=== PATIENT | male | born 1995 | race Caucasian/White ===

== ENCOUNTER 2023-10-27 15:37 | Inpatient (IN) | payer OTHER ==
[2023-10-27 16:38] VITALS: BMI 40.7
[2023-10-27] MEDS ORDERED: BENZOCAINE/MENTHOL (CHLORASEPTIC ) LOZENGE MM PRN (18:14)
[2023-10-27] MEDS ORDERED: DICYCLOMINE HCL 10 MG CAPSULE PO PRN (18:14)
[2023-10-27] MEDS ORDERED: LOPERAMIDE HCL 2 MG CAPSULE PO PRN (18:14)
[2023-10-27] MEDS ORDERED: BUPRENORPHINE HCL 150 MCG, BUPRENORPHINE HCL 75 MCG BC ONE ×2 (18:14→19:00)
[2023-10-27] MEDS ORDERED: NALOXONE HCL 0.4 MG/ML VIAL IM PRN (18:14)
[2023-10-27] MEDS ORDERED: IBUPROFEN 600 MG TABLET (FP) PO PRN (18:14)
[2023-10-27] MEDS ORDERED: guaiFENesin 600 MG TABLET.ER (FP) PO PRN (18:14)
[2023-10-27] MEDS ORDERED: NALOXONE HCL (KLOXXADO) 8 MG SPRAY NS PRN (18:14)
[2023-10-27] MEDS ORDERED: ONDANSETRON *ODT* 4 MG TABLET SL PRN (18:14)
[2023-10-27] MEDS ORDERED: MAG HYDROX/AL HYDROX/SIMETH 30 ML UNIT-DOSE CUP PO PRN (18:14)
[2023-10-27] MEDS ORDERED: POLYETHYLENE GLYCOL (HEALTHYLAX) 3350 17 GM PACKET PO PRN (18:14)
[2023-10-27] MEDS ORDERED: MAGNESIUM HYDROX 2400MG/30ML ORAL SUSPENSION 30 ML CUP PO PRN (18:14)
[2023-10-27] MEDS ORDERED: BISMUTH SUBSALICYLATE 524 MG/30 ML PO PRN (18:14)
[2023-10-27] MEDS ORDERED: cloNIDine HCL 0.1 MG TABLET PO ONE (18:14)
[2023-10-27] MEDS ORDERED: ACETAMINOPHEN 325 MG TABLET (FP) PO PRN (18:14)
[2023-10-27] MEDS ORDERED: BENZONATATE 200 MG CAPSULE PO PRN (18:14)
[2023-10-27] MEDS ORDERED: IBUPROFEN 400 MG TABLET (FP) PO PRN (18:14)
[2023-10-27] MEDS ORDERED: BUPRENORPHINE HCL 150 MCG, BUPRENORPHINE HCL 75 MCG BC PRN (18:53)
[2023-10-27] MEDS ORDERED: cloNIDine HCL 0.1 MG TABLET ONE (19:07)
[2023-10-27] MEDS: diazePAM 5 MG TABLET PO PRN (22:15)
[2023-10-27] MEDS: THIAMINE HCL 100 MG TABLET (FP) PO SCH (22:16)
[2023-10-27] MEDS: MELATONIN 5 MG TABLETS PO SCH (22:16)
[2023-10-28] MEDS ORDERED: BUPRENORPHINE HCL 150 MCG, BUPRENORPHINE HCL 75 MCG BC PRN
[2023-10-28] MEDS: BUPRENORPHINE HCL 150 MCG, BUPRENORPHINE HCL 75 MCG BC SCH ×2 (06:22→19:01)
[2023-10-28] MEDS: PRENATAL VITAMINS W/ FOLIC ACID TABLET (FP) PO SCH (10:23)
[2023-10-28 10:25] LABS: HEMATOCRIT 44.6 % (35.4-49); HEMOGLOBIN 15.2 GM/dL (11.7-16.9); MCH 29.3 pg (25.7-33.7); MEAN PLT VOLUME 7.7 fl (7.5-11.1); PLATELET COUNT 370 10^3/uL (134-434); RBC 5.19 M/mm3 (4.00-5.60); RDW 12.9 % (11.9-15.9); WHITE BLOOD COUNT 6.7 K/mm3 (4.0-10.0)
[2023-10-28] MEDS: hydrOXYzine PAMOATE 25 MG CAPSULE (FP) PO PRN ×2 (10:27→22:14)
[2023-10-28] MEDS: diazePAM 5 MG TABLET PO PRN ×2 (10:27→21:22)
[2023-10-28] MEDS: METHOCARBAMOL 500 MG TABLET PO PRN (10:27)
[2023-10-28 10:28] LABS: POTASSIUM 4.2 mmol/L (3.5-5.1)
[2023-10-28 10:37] LABS: ALBUMIN 3.6 g/dl (3.4-5.0)
[2023-10-28 10:39] LABS: CREATININE 0.8 mg/dL (0.55-1.3)
[2023-10-28 10:40] LABS: BLOOD UREA NITROGEN 12.1 mg/dL (7-18); CALCIUM 8.9 mg/dL (8.5-10.1)
[2023-10-28 10:41] LABS: BILIRUBIN,TOTAL 0.4 mg/dL (0.2-1); TOT PROT 6.7 g/dl (6.4-8.2)
[2023-10-28] MEDS: THIAMINE HCL 100 MG TABLET (FP) PO SCH (21:24)
[2023-10-28] MEDS: MELATONIN 5 MG TABLETS PO SCH (22:11)
[2023-10-28] MEDS: cloNIDine HCL 0.1 MG TABLET PO PRN (22:12)
[2023-10-29] MEDS ORDERED: BUPRENORPHINE/NALOXONE 2 MG/0.5 MG FILM PACKET SL ONE (06:00)
[2023-10-29] MEDS: BUPRENORPHINE HCL 450 MCG FILM BC SCH ×2 (06:19→17:36)
[2023-10-29] MEDS: PRENATAL VITAMINS W/ FOLIC ACID TABLET (FP) PO SCH (10:28)
[2023-10-29] MEDS: diazePAM 5 MG TABLET PO PRN ×2 (13:19→19:25)
[2023-10-29] MEDS: hydrOXYzine PAMOATE 25 MG CAPSULE (FP) PO PRN ×2 (15:21→22:27)
[2023-10-29] MEDS: METHOCARBAMOL 500 MG TABLET PO PRN (15:21)
[2023-10-29] MEDS: cloNIDine HCL 0.1 MG TABLET PO PRN (17:36)
[2023-10-29] MEDS: THIAMINE HCL 100 MG TABLET (FP) PO SCH (22:27)
[2023-10-29] MEDS: MELATONIN 5 MG TABLETS PO SCH (22:27)
[2023-10-30 05:49] VITALS: RESP 18
[2023-10-30] MEDS: BUPRENORPHINE/NALOXONE 4 MG/1 MG FILM PACKET SL SCH ×2 (06:23→17:27)
[2023-10-30] MEDS: diazePAM 5 MG TABLET PO PRN ×3 (07:02→22:12)
[2023-10-30] MEDS: hydrOXYzine PAMOATE 25 MG CAPSULE (FP) PO PRN ×2 (07:03→19:13)
[2023-10-30] MEDS: METHOCARBAMOL 500 MG TABLET PO PRN ×2 (07:04→22:16)
[2023-10-30] MEDS: cloNIDine HCL 0.1 MG TABLET PO PRN ×2 (09:45→22:12)
[2023-10-30] MEDS: PRENATAL VITAMINS W/ FOLIC ACID TABLET (FP) PO SCH (09:45)
[2023-10-30] MEDS: MELATONIN 5 MG TABLETS PO SCH (22:12)
[2023-10-30] MEDS: THIAMINE HCL 100 MG TABLET (FP) PO SCH (22:12)
[2023-10-31] MEDS ORDERED: BUPRENORPHINE/NALOXONE 2 MG/0.5 MG FILM PACKET SL ONE (06:00)
[2023-10-31] MEDS ORDERED: BUPRENORPHINE/NALOXONE 8 MG/2 MG FILM PACKET SL ONE (06:00)
[2023-10-31 06:01] VITALS: BP 106/69; PULSE 82; TEMP 97.7
[2023-10-31] MEDS: PRENATAL VITAMINS W/ FOLIC ACID TABLET (FP) PO SCH (10:00)
[2023-11-01] MEDS ORDERED: BUPRENORPHINE/NALOXONE 8 MG/2 MG FILM PACKET SL ONE (06:00)
== END 2023-10-31 09:00 | disposition home or self-care (01) | DRG 773 ==
LOC: YASAS 15:37 → Y6N 19:08
PROVIDERS: ADMIT Allergy & Immunology; ATTEND Surgery
PROC: HZ2ZZZZ Detoxification Services for Substance Abuse Treatment (ICD-10-PCS; principal; 2023-10-27)
DX: F11.23 Opioid dependence with withdrawal (principal); F13.20 Sedative, hypnotic or anxiolytic dependence, uncomplicated; F31.9 Bipolar disorder, unspecified; F41.9 Anxiety disorder, unspecified; F32.A Depression, unspecified; I10 Essential (primary) hypertension; Z28.310 Unvaccinated for COVID-19; Z28.9 Immunization not carried out for unspecified reason
CPT/HCPCS: 36415; 80053; 85027; 86780; 87635; 93005; 93010

== ENCOUNTER 2024-02-03 15:22 | Inpatient (IN) | payer OTHER ==
[2024-02-03] MEDS ORDERED: NALOXONE HCL (KLOXXADO) 8 MG SPRAY NS PRN (17:22)
[2024-02-03] MEDS ORDERED: ONDANSETRON *ODT* 4 MG TABLET SL PRN (17:22)
[2024-02-03] MEDS ORDERED: NALOXONE HCL 0.4 MG/ML VIAL IM PRN (17:22)
[2024-02-03] MEDS ORDERED: P-EPHED 60MG/TRIPROLIDI 2.5MG TABLET PO PRN (17:22)
[2024-02-03] MEDS ORDERED: BENZONATATE 200 MG CAPSULE PO PRN (17:22)
[2024-02-03] MEDS ORDERED: LOPERAMIDE HCL 2 MG CAPSULE PO PRN (17:22)
[2024-02-03] MEDS ORDERED: BENZOCAINE/MENTHOL (CHLORASEPTIC ) LOZENGE MM PRN (17:22)
[2024-02-03] MEDS ORDERED: IBUPROFEN 600 MG TABLET (FP) PO PRN (17:22)
[2024-02-03] MEDS ORDERED: DICYCLOMINE HCL 10 MG CAPSULE PO PRN (17:22)
[2024-02-03] MEDS ORDERED: ACETAMINOPHEN 325 MG TABLET (FP) PO PRN (17:22)
[2024-02-03] MEDS ORDERED: IBUPROFEN 400 MG TABLET (FP) PO PRN (17:22)
[2024-02-03] MEDS ORDERED: guaiFENesin 600 MG TABLET.ER (FP) PO PRN (17:22)
[2024-02-03] MEDS ORDERED: BISMUTH SUBSALICYLATE 524 MG/30 ML PO PRN (17:22)
[2024-02-03 17:29] VITALS: BMI 42.0
[2024-02-03] MEDS: hydrOXYzine PAMOATE 25 MG CAPSULE (FP) PO PRN (17:51)
[2024-02-03] MEDS: MAG HYDROX/AL HYDROX/SIMETH 30 ML UNIT-DOSE CUP PO PRN (20:51)
[2024-02-03] MEDS ORDERED: MELATONIN 5 MG TABLETS PO SCH (22:00)
[2024-02-03] MEDS: THIAMINE HCL 100 MG TABLET (FP) PO SCH (22:11)
[2024-02-03] MEDS: hydrOXYzine PAMOATE 50 MG CAPSULE (FP) PO ONE (22:12)
[2024-02-03] MEDS: MELATONIN 5 MG TABLETS PO SCH (22:12)
[2024-02-04] MEDS ORDERED: chlordiazePOXIDE HCL 25 MG CAPSULE PO PRN (09:54)
[2024-02-04] MEDS: PRENATAL VITAMINS W/ FOLIC ACID TABLET (FP) PO SCH (10:27)
[2024-02-04] MEDS: hydrOXYzine PAMOATE 25 MG CAPSULE (FP) PO PRN (10:28)
[2024-02-04] MEDS: METHOCARBAMOL 500 MG TABLET PO PRN (10:28)
[2024-02-04] MEDS: chlordiazePOXIDE HCL 25 MG CAPSULE PO SCH (10:28)
[2024-02-04] MEDS: MAGNESIUM HYDROX 2400MG/30ML ORAL SUSPENSION 30 ML CUP PO PRN (12:00)
[2024-02-04 12:51] LABS: POTASSIUM 3.9 mmol/L (3.5-5.1)
[2024-02-04 12:52] LABS: HEMATOCRIT 43.3 % (35.4-49); HEMOGLOBIN 15.2 GM/dL (11.7-16.9); MCH 30.4 pg (25.7-33.7); MEAN CELL VOLUME 86.7 fl (80-96); MEAN PLT VOLUME 8.4 fl (7.5-11.1); PLATELET COUNT 295 10^3/uL (134-434); RDW 13.9 % (11.9-15.9); WHITE BLOOD COUNT 7.3 K/mm3 (4.0-10.0)
[2024-02-04 13:00] LABS: ALBUMIN 3.6 g/dl (3.4-5.0); BLOOD UREA NITROGEN 12.8 mg/dL (7-18); CALCIUM 8.8 mg/dL (8.5-10.1)
[2024-02-04 13:02] LABS: CREATININE 0.7 mg/dL (0.55-1.3)
[2024-02-04 13:04] LABS: TOT PROT 6.5 g/dl (6.4-8.2)
[2024-02-04 13:11] LABS: BILIRUBIN,TOTAL 0.3 mg/dL (0.2-1)
[2024-02-04] MEDS ORDERED: SUVOREXANT 10 MG TABLET PO PRN (22:00)
[2024-02-04] MEDS: SUVOREXANT 10 MG TABLET PO PRN (22:32)
[2024-02-05] MEDS ORDERED: chlordiazePOXIDE HCL 25 MG CAPSULE PO SCH (05:00)
[2024-02-05] MEDS: POLYETHYLENE GLYCOL (HEALTHYLAX) 3350 17 GM PACKET PO PRN (11:32)
[2024-02-05] MEDS: diazePAM 5 MG TABLET PO PRN (18:19)
[2024-02-05] MEDS: SUVOREXANT 15 MG TABLET PO PRN (22:38)
[2024-02-06] MEDS ORDERED: chlordiazePOXIDE HCL 10 MG CAPSULE PO SCH (05:00)
[2024-02-06] MEDS: BISACODYL 10 MG SUPP.RECT PR ONE (13:36)
[2024-02-06] MEDS: PSYLLIUM 5.85 GM PACKET PO SCH (13:36)
[2024-02-07] MEDS ORDERED: chlordiazePOXIDE HCL 10 MG CAPSULE PO PRN
[2024-02-07] MEDS ORDERED: chlordiazePOXIDE HCL 10 MG CAPSULE PO SCH (05:00)
[2024-02-07 12:49] VITALS: BP 145/97; PULSE 87; RESP 20; TEMP 96.4
[2024-02-08] MEDS ORDERED: chlordiazePOXIDE HCL 10 MG CAPSULE PO ONE (05:00)
== END 2024-02-07 14:55 | disposition home or self-care (01) | DRG 773 ==
LOC: YASAS 15:22 → Y6N 17:25
PROVIDERS: ADMIT Allergy & Immunology; ATTEND Surgery
PROC: HZ2ZZZZ Detoxification Services for Substance Abuse Treatment (ICD-10-PCS; principal; 2024-02-03)
DX: F11.23 Opioid dependence with withdrawal (principal); F13.20 Sedative, hypnotic or anxiolytic dependence, uncomplicated; F31.9 Bipolar disorder, unspecified; F41.9 Anxiety disorder, unspecified; I10 Essential (primary) hypertension; Z28.310 Unvaccinated for COVID-19; Z28.9 Immunization not carried out for unspecified reason; Z88.8 Allergy status to other drugs, medicaments and biological substances
CPT/HCPCS: 36415; 80053; 80305; 85027; 86780; 87635; 87811

== ENCOUNTER 2024-03-18 20:37 | Inpatient (IN) | payer OTHER ==
[2024-03-18 21:15] VITALS: BMI 41.1
[2024-03-18] MEDS ORDERED: BENZOCAINE/MENTHOL (CHLORASEPTIC ) LOZENGE MM PRN (21:57)
[2024-03-18] MEDS ORDERED: MAG HYDROX/AL HYDROX/SIMETH 30 ML UNIT-DOSE CUP PO PRN (21:57)
[2024-03-18] MEDS ORDERED: ACETAMINOPHEN 325 MG TABLET (FP) PO PRN (21:57)
[2024-03-18] MEDS ORDERED: ONDANSETRON *ODT* 4 MG TABLET SL PRN (21:57)
[2024-03-18] MEDS ORDERED: guaiFENesin 600 MG TABLET.ER (FP) PO PRN (21:57)
[2024-03-18] MEDS ORDERED: MAGNESIUM HYDROX 2400MG/30ML ORAL SUSPENSION 30 ML CUP PO PRN (21:57)
[2024-03-18] MEDS ORDERED: NICOTINE POLACRILEX 4 MG GUM BUC PRN (21:57)
[2024-03-18] MEDS ORDERED: NALOXONE HCL 0.4 MG/ML VIAL IM PRN (21:57)
[2024-03-18] MEDS ORDERED: LOPERAMIDE HCL 2 MG CAPSULE PO PRN (21:57)
[2024-03-18] MEDS ORDERED: POLYETHYLENE GLYCOL (HEALTHYLAX) 3350 17 GM PACKET PO PRN (21:57)
[2024-03-18] MEDS ORDERED: DICYCLOMINE HCL 10 MG CAPSULE PO PRN (21:57)
[2024-03-18] MEDS ORDERED: NALOXONE HCL (KLOXXADO) 8 MG SPRAY NS PRN (21:57)
[2024-03-18] MEDS ORDERED: BISMUTH SUBSALICYLATE 524 MG/30 ML PO PRN (21:57)
[2024-03-18] MEDS ORDERED: BENZONATATE 200 MG CAPSULE PO PRN (21:57)
[2024-03-18] MEDS ORDERED: cloNIDine HCL 0.1 MG TABLET ONE (22:24)
[2024-03-18] MEDS ORDERED: diazePAM 5 MG TABLET ONE (22:24)
[2024-03-18] MEDS ORDERED: MELATONIN 5 MG TABLETS ONE (22:24)
[2024-03-18] MEDS ORDERED: IBUPROFEN 400 MG TABLET (FP) PO ONE (22:25)
[2024-03-18] MEDS: THIAMINE 100 MG TABLET PO SCH (22:31)
[2024-03-18] MEDS: cloNIDine HCL 0.1 MG TABLET PO ONE (22:31)
[2024-03-18] MEDS: MELATONIN 5 MG TABLETS PO SCH (22:31)
[2024-03-18] MEDS: diazePAM 5 MG TABLET PO PRN (22:32)
[2024-03-18] MEDS: IBUPROFEN 400 MG TABLET (FP) PO PRN (22:33)
[2024-03-18] MEDS: BUPRENORPHINE HCL 150 MCG, BUPRENORPHINE HCL 75 MCG BC PRN (23:02)
[2024-03-18] MEDS: BUPRENORPHINE HCL 150 MCG, BUPRENORPHINE HCL 75 MCG BC ONE (23:35)
[2024-03-19] MEDS ORDERED: BUPRENORPHINE HCL 150 MCG, BUPRENORPHINE HCL 75 MCG BC PRN
[2024-03-19] MEDS: BUPRENORPHINE HCL 150 MCG, BUPRENORPHINE HCL 75 MCG BC SCH (06:02)
[2024-03-19] MEDS: PRENATAL VITAMINS W/ FOLIC ACID TABLET (FP) PO SCH (09:25)
[2024-03-19] MEDS: NICOTINE 14 MG/24 HOURS TOPICAL PATCH TD SCH (09:25)
[2024-03-19] MEDS: METHOCARBAMOL 500 MG TABLET PO PRN (09:27)
[2024-03-19] MEDS: hydrOXYzine PAMOATE 25 MG CAPSULE (FP) PO PRN (10:12)
[2024-03-19 13:03] LABS: HEMATOCRIT 45.8 % (35.4-49); HEMOGLOBIN 15.7 GM/dL (11.7-16.9); MCHC 34.3 g/dl (32.0-35.9); MEAN CELL VOLUME 87.5 fl (80-96); MEAN PLT VOLUME 8.2 fl (7.5-11.1); PLATELET COUNT 284 10^3/uL (134-434); RBC 5.24 M/mm3 (4.00-5.60); RDW 13.6 % (11.9-15.9)
[2024-03-19 13:05] LABS: CHLORIDE 107 mmol/L (98-107); SODIUM 136 mmol/L (136-145)
[2024-03-19 13:12] LABS: ALBUMIN 3.7 g/dl (3.4-5.0); ANION GAP 3 mmol/L (4-13); CALCIUM 9.6 mg/dL (8.5-10.1); CO2 26 mmol/L (21-32); GLUCOSE,RANDOM 105 mg/dL (74-106)
[2024-03-19 13:15] LABS: SGPT/ALT 73 U/L (13-61)
[2024-03-19 13:16] LABS: CREATININE 0.9 mg/dL (0.55-1.3); SGOT/AST 41 U/L (15-37)
[2024-03-19 13:17] LABS: BILIRUBIN,TOTAL 0.6 mg/dL (0.2-1); TOT PROT 6.8 g/dl (6.4-8.2)
[2024-03-19 13:18] LABS: ALK PHOS 91 U/L (45-117)
[2024-03-19] MEDS: IBUPROFEN 600 MG TABLET (FP) PO PRN (18:08)
[2024-03-19] MEDS: diazePAM 5 MG TABLET PO PRN (22:23)
[2024-03-20] MEDS: BUPRENORPHINE HCL 450 MCG FILM BC SCH (06:08)
[2024-03-20] MEDS: ESCITALOPRAM OXALATE 10 MG TABLET PO SCH (11:27)
[2024-03-20] MEDS: GABAPENTIN 300 MG CAPSULE PO SCH ×2 (11:28→22:23)
[2024-03-20] MEDS: SUVOREXANT 10 MG TABLET PO PRN (22:24)
[2024-03-21] MEDS: BUPRENORPHINE/NALOXONE 4 MG/1 MG FILM PACKET SL SCH (05:18)
[2024-03-21 08:49] VITALS: RESP 18
[2024-03-21] MEDS: LACTULOSE 20 GM/30 ML UDC (FOR ORAL USE ONLY) PO ONE ×2 (09:38→18:17)
[2024-03-21] MEDS: cloNIDine HCL 0.1 MG TABLET PO PRN (14:04)
[2024-03-22] MEDS: BUPRENORPHINE/NALOXONE 8 MG/2 MG FILM PACKET SL ONE (06:28)
[2024-03-22] MEDS ORDERED: diphenhydrAMINE HCL 25 MG CAPSULE (FP) PO PRN (09:13)
[2024-03-22] MEDS: diphenhydrAMINE HCL 50 MG CAPSULE PO ONE (09:46)
[2024-03-22] MEDS: CALAMINE 8% TOPICAL LOTION 177 ML BOTTLE TP PRN (10:28)
[2024-03-22] MEDS: predniSONE 20 MG TABLET (UD) PO SCH (10:28)
[2024-03-22] MEDS: PRAMOXINE HCL/CALAMINE 177 ML LOTION TP SCH (11:15)
[2024-03-22 11:30] VITALS: BP 130/74; PULSE 81; TEMP 97.8
[2024-03-22] MEDS ORDERED: BUPRENORPHINE/NALOXONE 8 MG/2 MG FILM PACKET SL SCH (14:00)
== END 2024-03-22 12:05 | disposition other institution (70) | DRG 773 ==
LOC: YASAS 20:37 → Y6N 22:06
PROVIDERS: ADMIT Allergy & Immunology; ATTEND Surgery
PROC: HZ2ZZZZ Detoxification Services for Substance Abuse Treatment (ICD-10-PCS; principal; 2024-03-18)
DX: F11.23 Opioid dependence with withdrawal (principal); F14.20 Cocaine dependence, uncomplicated; F13.20 Sedative, hypnotic or anxiolytic dependence, uncomplicated; F12.20 Cannabis dependence, uncomplicated; F17.210 Nicotine dependence, cigarettes, uncomplicated; F31.9 Bipolar disorder, unspecified; F19.280 Other psychoactive substance dependence with psychoactive substance-induced anxiety disorder; F19.282 Other psychoactive substance dependence with psychoactive substance-induced sleep disorder; F90.9 Attention-deficit hyperactivity disorder, unspecified type; L25.9 Unspecified contact dermatitis, unspecified cause; K59.00 Constipation, unspecified; Z28.310 Unvaccinated for COVID-19; Z28.9 Immunization not carried out for unspecified reason
CPT/HCPCS: 36415; 80053; 80305; 80307; 85027; 86780

== ENCOUNTER 2024-04-13 15:42 | Inpatient (IN) | payer OTHER ==
[2024-04-13 16:56] VITALS: BMI 42.1
[2024-04-13] MEDS ORDERED: ONDANSETRON *ODT* 4 MG TABLET SL PRN (19:08)
[2024-04-13] MEDS ORDERED: P-EPHED 60MG/TRIPROLIDI 2.5MG TABLET PO PRN (19:08)
[2024-04-13] MEDS ORDERED: BISMUTH SUBSALICYLATE 524 MG/30 ML PO PRN (19:08)
[2024-04-13] MEDS ORDERED: DOCUSATE SODIUM 100 MG CAPSULE (FP) PO PRN (19:08)
[2024-04-13] MEDS ORDERED: NALOXONE HCL (KLOXXADO) 8 MG SPRAY NS PRN (19:08)
[2024-04-13] MEDS ORDERED: guaiFENesin 600 MG TABLET.ER (FP) PO PRN (19:08)
[2024-04-13] MEDS ORDERED: MAG HYDROX/AL HYDROX/SIMETH 30 ML UNIT-DOSE CUP PO PRN (19:08)
[2024-04-13] MEDS ORDERED: IBUPROFEN 400 MG TABLET (FP) PO PRN (19:08)
[2024-04-13] MEDS ORDERED: BENZOCAINE/MENTHOL (CHLORASEPTIC ) LOZENGE MM PRN (19:08)
[2024-04-13] MEDS ORDERED: ACETAMINOPHEN 325 MG TABLET (FP) PO PRN (19:08)
[2024-04-13] MEDS ORDERED: NALOXONE HCL 0.4 MG/ML VIAL IM PRN (19:08)
[2024-04-13] MEDS ORDERED: MAGNESIUM HYDROX 2400MG/30ML ORAL SUSPENSION 30 ML CUP PO PRN (19:08)
[2024-04-13] MEDS ORDERED: IBUPROFEN 600 MG TABLET (FP) PO PRN (19:08)
[2024-04-13] MEDS ORDERED: BENZONATATE 200 MG CAPSULE PO PRN (19:08)
[2024-04-13] MEDS ORDERED: POLYETHYLENE GLYCOL (HEALTHYLAX) 3350 17 GM PACKET PO PRN (19:08)
[2024-04-13] MEDS ORDERED: LOPERAMIDE HCL 2 MG CAPSULE PO PRN (19:08)
[2024-04-13] MEDS ORDERED: DICYCLOMINE HCL 10 MG CAPSULE PO PRN (19:08)
[2024-04-13] MEDS: diazePAM 5 MG TABLET PO SCH (23:12)
[2024-04-13] MEDS: MELATONIN 5 MG TABLETS PO SCH (23:12)
[2024-04-13] MEDS: THIAMINE 100 MG TABLET PO SCH (23:12)
[2024-04-14] MEDS: PRENATAL VITAMINS W/ FOLIC ACID TABLET (FP) PO SCH (10:37)
[2024-04-14] MEDS: METHOCARBAMOL 500 MG TABLET PO PRN (13:42)
[2024-04-14] MEDS: diazePAM 5 MG TABLET PO PRN (13:43)
[2024-04-14] MEDS: hydrOXYzine PAMOATE 25 MG CAPSULE (FP) PO PRN (13:43)
[2024-04-15] MEDS: diazePAM 5 MG TABLET PO SCH (06:06)
[2024-04-16] MEDS: diazePAM 5 MG TABLET PO SCH (05:51)
[2024-04-16] MEDS: cloNIDine HCL 0.1 MG TABLET PO PRN (17:13)
[2024-04-17] MEDS: diazePAM 5 MG TABLET PO ONE (05:54)
[2024-04-17 09:17] VITALS: BP 144/76; PULSE 74; RESP 18; TEMP 97.6
== END 2024-04-17 10:50 | disposition home or self-care (01) | DRG 773 ==
LOC: YASAS 15:42 → Y3N 20:07
PROVIDERS: ADMIT Allergy & Immunology; ATTEND Surgery
PROC: HZ2ZZZZ Detoxification Services for Substance Abuse Treatment (ICD-10-PCS; principal; 2024-04-13)
DX: F11.23 Opioid dependence with withdrawal (principal); F13.20 Sedative, hypnotic or anxiolytic dependence, uncomplicated; F14.20 Cocaine dependence, uncomplicated; F12.20 Cannabis dependence, uncomplicated; F17.210 Nicotine dependence, cigarettes, uncomplicated; F31.9 Bipolar disorder, unspecified; F41.9 Anxiety disorder, unspecified
CPT/HCPCS: 80305; 80307